=== PATIENT | female | born 1950 | race American Indian/Alaskan Native ===

== ENCOUNTER 2019-01-12 17:46 | Emergency (ER) | payer MEDICARE, MEDICAID ==
[2019-01-12 18:10] VITALS: BP 198/92; PULSE 91
[2019-01-12] MEDS ORDERED: Sucralfate Suspension 1 GM/10 ML Cup PO ONE (18:19)
[2019-01-12] MEDS ORDERED: Cyclobenzaprine 10 MG Tab PO ONE (18:19)
[2019-01-12] MEDS ORDERED: Naproxen 250 MG Tab PO ONE (18:21)
--- NOTE | 2019-01-12 18:28 | EDM.PDOC ---
ED HPI GENERAL MEDICAL PROBLEM - General Chief Complaint: Back Pain or Injury Stated Complaint: LOW BACK PAIN Time Seen by Provider: 01/12/19 18:22 Source of Information: Reports: Patient History Limitations: Reports: No Limitations - History of Present Illness INITIAL COMMENTS - FREE TEXT/NARRATIVE: Alert very pleasant 68 yo female present to ER for evaluation of right mid and lower back pain. Patient started over the weekend without any concerning injury or fall. Patient was doing laundry this weekend at home and lives with her grandson whom weights around 30 pounds whom she lifts on a regular basis. Patient took Ibuprofen 400mg at 2pm without improvement of her symptoms. Patient had a back strain a number of years ago but no previous significant, consistent injury or pain. Patient denies back surgery. Patient has noted increased urination today. Patient denies nausea, vomiting or diarrhea/ constipation concerns. 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 Patient was trying to be careful and use her knee instead of bending her back. Patient denies lower leg numbness, tingling or weakness. She denies loss of bowel or bladder function. Lower Back Pain Score (Numeric/FACES): 7 - Related Data Allergies Allergy/AdvReac Type Severity Reaction Status Date / Time hydrochlorothiazide Allergy Cannot Verified 01/12/19 18:04 Remember ibuprofen Allergy Stomach Verified 01/12/19 18:04 Upset methocarbamol Allergy Cannot Verified 01/12/19 18:04 Remember milk Allergy Diarrhea Verified 01/12/19 18:04 propoxyphene Allergy Rash Verified 01/12/19 18:04 sumatriptan Allergy Swelling Verified 01/12/19 18:04 Home Meds: Home Meds Cyclobenzaprine [Flexeril] 5 - 10 mg PO TID PRN 5 Days #15 tab 01/12/19 [Rx] Naproxen Sodium [All Day Relief] 440 mg PO Q8H PRN 5 Days #40 tablet 01/12/19 [ Rx] Omeprazole 20 mg PO DAILY 30 Days #30 capsule. 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: Neurological History: Reports: Migraines - Past Surgical History Musculoskeletal Surgical History: Reports: Shoulder Surgery Social & Family History - Tobacco Use Smoking Status *Q: Current Every Day Smoker Years of Tobacco use: 50 Packs/Tins Daily: 0.5 - Caffeine Use Caffeine Use: Reports: Coffee - Recreational Drug Use Recreational Drug Use: No ED ROS GENERAL - Review of Systems Review Of Systems: See Below ED EXAM,LOWER BACK PAIN/INJURY - Physical Exam Exam: See Below Exam Limited By: No Limitations General Appearance: Alert, WD/WN, Mild Distress (guarded ambulation and getting up from seated positioning. ) Eye Exam: Bilateral Eye: EOMI, PERRL Ears: Normal External Exam, Normal Canal, Hearing Grossly Normal, Normal TMs Nose: Normal Inspection, Normal Mucosa, No Blood Throat/Mouth: Normal Inspection, Normal Lips, Normal Teeth, Normal Gums, Normal Oropharynx, Normal Voice, No Airway Compromise Head: Atraumatic, Normocephalic Neck: Normal Inspection, Supple, Non-Tender, Full Range of Motion Respiratory/Chest: No Respiratory Distress, Lungs Clear, Normal Breath Sounds, No Accessory Muscle Use, Chest Non-Tender Cardiovascular: Normal Peripheral Pulses, Regular Rate, Rhythm, No Edema, No Gallop, No JVD, No Murmur, No Rub GI/Abdominal: Normal Bowel Sounds, Soft, Non-Tender Back Exam: Normal Inspection, CVA Tenderness (R) (mild to percussion), Decreased Range of Motion, Muscle Spasm, Paraspinal Tenderness. No: CVA Tenderness (L), Vertebral Tenderness Extremities: Normal Inspection, Normal Range of Motion, Non-Tender, No Pedal Edema, Normal Capillary Refill Neurological: Alert, Normal Mood/Affect, CN II-XII Intact, Normal Plantar Flexion, No Motor/Sensory Deficits, Oriented x 3 Psychiatric: Normal Affect, Normal Mood Skin Exam: Warm, Dry, Intact, Normal Color, No Rash Course - Vital Signs Last Recorded V/S: Last Vital Signs Temp 34.9 C L 01/12/19 18:05 Pulse 91 01/12/19 18:05 Resp 19 01/12/19 18:05 BP 198/92 H 01/12/19 18:05 Pulse Ox 99 01/12/19 18:05 - Orders/Labs/Meds Labs: Laboratory Tests 01/12/19 Range/Units 18:24 Urine Color Yellow (YELLOW) Urine Appearance Clear (CLEAR) Urine pH 7.0 (5.0-8.0) Ur Specific Satin 1.015 (1.008-1.030) Urine Protein Negative (NEGATIVE) mg/dL Urine Glucose (UA) Negative (NEGATIVE) mg/dL Urine Ketones Negative (NEGATIVE) mg/dL Urine Occult Blood Trace-intact H (NEGATIVE) Urine Nitrite Negative (NEGATIVE) Urine Bilirubin Negative (NEGATIVE) Urine Urobilinogen 0.2 (0.2-1.0) EU/dL Ur Leukocyte Esterase Trace H (NEGATIVE) Urine RBC 0-5 (0-5) Urine WBC 5-10 H (0-5) Ur Epithelial Cells Few Amorphous Sediment Few Urine Bacteria Rare Urine Mucus Few Meds: Medications Discontinued Medications Generic Name Dose Route Start Last Admin Trade Name Freq PRN Reason Stop Dose Admin Cyclobenzaprine HCl 10 mg 01/12/19 18:19 01/12/19 18:30 Flexeril PO 01/12/19 18:20 10 mg ONETIME ONE Administration Naproxen 500 mg 01/12/19 18:21 01/12/19 18:30 Naprosyn PO 01/12/19 18:22 500 mg ONETIME ONE Administration Sucralfate 1 gm 01/12/19 18:19 01/12/19 18:30 Carafate PO 01/12/19 18:20 1 gm ONETIME ONE Administration - Re-Assessments/Exams Free Text/Narrative Re-Assessment/Exam: Discussed obtaining a urine sample for evaluation of possible UTI symptoms with back pain concerns. Shared decision making regarding oral vs pain medications. Patient opted for no injections. Discussed the normal expected healing cycle of back strain concerns. Pain will likely resolve in 6 weeks regardless of treatment but can offer ideas to improve symptoms. Patient did apply a heating pad last night for about 20 minutes. 01/12/19 18:29 Departure - Departure Time of Disposition: 18:45 Disposition: Home, Self-Care 01 Clinical Impression: Strain of back, Hematuria, Elevated blood pressure reading - Discharge Information Prescriptions: Cyclobenzaprine [Flexeril] 5 - 10 mg PO TID PRN 5 Days #15 tab PRN Reason: Muscle Spasm Naproxen Sodium [All Day Relief] 440 mg PO Q8H PRN 5 Days #40 tablet PRN Reason: inflammation Omeprazole 20 mg PO DAILY 30 Days #30 capsule. Instructions: Mid-Back Strain, Heat Therapy, Core Strength Exercises, Low Back Sprain Rehab-SportsMed, Cryotherapy, Low Back Strain, Back Injury Prevention, Hypertension, How to Take Your Blood Pressure Referrals: PCP,None [Primary Care Provider] - Forms: ED Department Discharge Additional Instructions: 1. Take your blood pressure and pulse every 1-2 days over the next 2 weeks. 2. Take Blood Pressure Readings to your primary care provider to discuss. 3. You may need to treat or manage blood pressure concerns which led to Heart Attack or Stroke. 4. Naproxen (Aleve) 220 or 440mg every 8-12 hours (morning and night) with food x 5-7 days for muscle aches and pain. 5. Flexeril 5-20 mg every 6 hours as needed for muscle spasms and pain. 6. Tylenol 500mg every 4-6 hours or 650mg every 6-8 hours for mild pain. 7. Omeprazole 20mg daily every day you take Aleve or Advil for back strain, muscle aches and pain.
== END 2019-01-12 18:57 | disposition home or self-care (01) ==
LOC: JP.ED 17:46
DX: S29.012A Strain of muscle and tendon of back wall of thorax, initial encounter (principal); S39.012A Strain of muscle, fascia and tendon of lower back, initial encounter; R31.9 Hematuria, unspecified; I10 Essential (primary) hypertension; F17.210 Nicotine dependence, cigarettes, uncomplicated; Z88.6 Allergy status to analgesic agent; Z88.8 Allergy status to other drugs, medicaments and biological substances; Z91.011 Allergy to milk products; X50.0XXA Overexertion from strenuous movement or load, initial encounter
CPT/HCPCS: 81001; 99283; A9270-GY

== ENCOUNTER 2019-08-09 19:18 | Emergency (ER) | payer MEDICARE, MEDICAID ==
[2019-08-09 19:33] VITALS: BP 191/96; PULSE 104
[2019-08-09] MEDS ORDERED: Ketorolac 60 MG/2 ML SDV IM ONE (19:48)
--- NOTE | 2019-08-09 19:51 | EDM.PDOC ---
ED HPI GENERAL MEDICAL PROBLEM - General Chief Complaint: Lower Extremity Injury/Pain Stated Complaint: FALL RIGHT ANKLE INJURY Time Seen by Provider: 08/09/19 19:46 Source of Information: Reports: Patient, RN Notes Reviewed History Limitations: Reports: No Limitations - History of Present Illness INITIAL COMMENTS - FREE TEXT/NARRATIVE: 69-year-old female presents emergency department today following a fall at home she twisted her right ankle but she is experiencing pain the bottom of her foot. 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 Right Ankle Pain Score (Numeric/FACES): 7 - Related Data Allergies Allergy/AdvReac Type Severity Reaction Status Date / Time hydrochlorothiazide Allergy Cannot Verified 08/09/19 19:35 Remember ibuprofen Allergy Stomach Verified 08/09/19 19:35 Upset methocarbamol Allergy Cannot Verified 08/09/19 19:35 Remember milk Allergy Diarrhea Verified 08/09/19 19:35 propoxyphene Allergy Rash Verified 08/09/19 19:35 sumatriptan Allergy Swelling Verified 08/09/19 19:35 Home Meds: Home Meds lisinopriL [Lisinopril] 20 mg PO DAILY 08/09/19 [History] Past Medical History Cardiovascular History: Reports: Hypertension 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: Neurological History: Reports: Migraines - Infectious Disease History Infectious Disease History: Reports: Chicken Pox, Measles, Mumps - Past Surgical History Musculoskeletal Surgical History: Reports: Shoulder Surgery Social & Family History - Tobacco Use Smoking Status *Q: Current Every Day Smoker Years of Tobacco use: 50 Packs/Tins Daily: 0.5 - Caffeine Use Caffeine Use: Reports: Coffee, Tea Caffeine Use Comment: 2 cups of coffee in the morning; tea and water the rest of the day - Recreational Drug Use Recreational Drug Use: No Review of Systems - Review of Systems Review Of Systems: See Below Musculoskeletal: Reports: Foot Pain ED EXAM, GENERAL - Physical Exam Exam: See Below Free Text/Narrative:: Examination of the right foot I do not appreciate any bruising there is no edema noted pedal pulses +2 she is tender to palpation midfoot metatarsal #2 area more on the plantar aspect than the dorsal aspect Exam Limited By: No Limitations General Appearance: Alert, WD/WN, No Apparent Distress Respiratory/Chest: No Respiratory Distress Course - Vital Signs Last Recorded V/S: Last Vital Signs Temp 97.4 F 08/09/19 19:41 Pulse 104 H 08/09/19 19:41 Resp 16 08/09/19 19:41 BP 191/96 H 08/09/19 19:41 Pulse Ox 96 08/09/19 19:41 - Orders/Labs/Meds Orders: Active Orders 24 hr Category Date Time Status Foot Comp Min 3V Rt [CR] Stat Exams 08/09/19 19:48 Taken DME for Discharge [COMM] Per Unit Routine Oth 08/09/19 20:28 Ordered Meds: Medications Discontinued Medications Generic Name Dose Route Start Last Admin Trade Name Nathalia PRN Reason Stop Dose Admin Ketorolac Tromethamine 60 mg 08/09/19 19:48 08/09/19 20:10 Toradol IM 08/09/19 19:49 60 mg ONETIME ONE Administration Departure - Departure Time of Disposition: 20:30 Disposition: Home, Self-Care 01 Condition: Fair Clinical Impression: Right foot sprain Qualifiers: Encounter type: initial encounter Qualified Code(s): S93.601A - Unspecified sprain of right foot, initial encounter - Discharge Information Instructions: Foot Sprain Referrals: PCP,None [Primary Care Provider] - Forms: ED Department Discharge Additional Instructions: Use Tylenol for baseline pain control, use hydrocodone for breakthrough pain be mindful not to exceed 4000 mg in a 24-hour period of Tylenol, please follow-up with orthopedics in 1 week for reevaluation Sepsis Event Note - Evaluation Sepsis Screening Result: No Definite Risk - Focused Exam Vital Signs: Vital Signs Temp Pulse Resp BP Pulse Ox 08/09/19 19:41 97.4 F 104 H 16 191/96 H 96 08/09/19 19:31 97.4 F 104 H 16 191/96 H 96 Date Exam was Performed: 08/09/19 Time Exam was Performed: 20:29 - My Orders Last 24 Hours: My Active Orders 08/09/19 19:48 Foot Comp Min 3V Rt [CR] Stat 08/09/19 20:28 DME for Discharge [COMM] Per Unit Routine - Assessment/Plan Last 24 Hours: My Active Orders 08/09/19 19:48 Foot Comp Min 3V Rt [CR] Stat 08/09/19 20:28 DME for Discharge [COMM] Per Unit Routine Plan: Assessment Acuity = acute Site and laterality = right foot sprain Etiology = secondary to trauma Manifestations = none Location of injury = Home Lab values = foot x-ray I did review films myself I cannot appreciate any acute process, the official read from radiology is pending Plan She is placed in a walking boot will follow up with Ortho in 1 week prescription written for hydrocodone 5/325 1 tab p.o. 3 times daily PRN total #6 This note was dictated using [employer] voice recognition software please call with any questions on syntax or grammar.
--- NOTE | 2019-08-10 10:33 | CR ---
FOOT RIGHT 3 views CLINICAL HISTORY:Injury FINDINGS:No fracture or osseous lesion is identified. There is a small calcaneal spur. Impression: No fracture dislocation Small calcaneal spur
== END 2019-08-09 20:56 | disposition home or self-care (01) ==
LOC: JP.ED 19:18
DX: S93.601A Unspecified sprain of right foot, initial encounter (principal); I10 Essential (primary) hypertension; F17.210 Nicotine dependence, cigarettes, uncomplicated; Z79.899 Other long term (current) drug therapy; Z88.8 Allergy status to other drugs, medicaments and biological substances; Z88.6 Allergy status to analgesic agent; Z91.011 Allergy to milk products; X50.1XXA Overexertion from prolonged static or awkward postures, initial encounter; Y92.009 Unspecified place in unspecified non-institutional (private) residence as the place of occurrence of the external cause
CPT/HCPCS: 73630-26-RT; 73630-RT; 96372; 99283; 99283-25; J1885